=== PATIENT | female | born 1960 | race Caucasian/White ===

== ENCOUNTER 2017-06-29 10:38 | Outpatient (CLI) | payer OTHER ==
--- NOTE | 2017-06-30 15:42 | Mammography Report ---
DIGITAL SCREENING MAMMOGRAM: 06/29/2017 CLINICAL INDICATION: A 56-year-old with history of late childbearing, family history of breast cancer, for screening COMPARISON: 02/2016, 12/2013, 10/2012, 06/2011. TECHNIQUE: Routine CC and MLO projections were obtained of the breasts. Bilateral laterally exaggerated craniocaudal views. FINDINGS: Parenchymal tissue within both breasts is heterogeneously dense, which may lower the sensitivity of mammography; however, there are no dominant masses, suspicious microcalcifications, or secondary signs of malignancy. In comparison to the previous studies, there are no significant changes. ASSESSMENT: NO MAMMOGRAPHIC EVIDENCE OF MALIGNANCY. NO SIGNIFICANT INTERVAL CHANGES. RECOMMENDATION: Screening mammography is recommended annually. BIRADS category 1 - negative. STANDARD QUALIFYING STATEMENTS: 1. This examination was reviewed with the aid of Computed-Aided Detection (CAD). 2. A negative or benign imaging report should not delay biopsy if clinically suspicious findings are present. Consider surgical consultation if warranted. More than 5% of cancers are not identified by imaging. 3. Dense breasts may obscure an underlying neoplasm. TD: 06/30/2017 15:41
== END 2017-06-29 10:39 | disposition home or self-care (01) ==
LOC: DI.S 10:38
PROVIDERS: ATTEND Nurse Practitioner Family
DX: Z12.39 Encounter for other screening for malignant neoplasm of breast (principal); Z80.3 Family history of malignant neoplasm of breast
CPT/HCPCS: 77067

== ENCOUNTER 2017-07-05 13:09 | Outpatient (CLI) | payer OTHER ==
--- NOTE | 2017-07-05 16:33 | XRAY Report ---
TWO VIEW CHEST: 07/05/2017 CLINICAL INDICATION: Upper respiratory infection. COMPARISON: CT 09/22/2011. FINDINGS: Frontal and lateral views of the chest demonstrate a normal cardiac silhouette. Biapical scarring is stable. No focal consolidation, effusion, or pneumothorax is present. IMPRESSION: BIAPICAL SCARRING. NO EVIDENCE OF ACUTE CARDIOPULMONARY DISEASE. TD: 07/05/2017 16:33
== END 2017-07-05 13:10 | disposition home or self-care (01) ==
LOC: DI.S 13:09
PROVIDERS: ATTEND Nurse Practitioner Family
DX: J06.9 Acute upper respiratory infection, unspecified (principal)
CPT/HCPCS: 71046

== ENCOUNTER 2017-11-29 13:04 | Outpatient (CLI) | payer OTHER ==
--- NOTE | 2017-11-29 14:41 | XRAY Report ---
Procedure Date: 11/29/2017 Accession Number: [id number] / [id number] Procedure: XR - Foot 3 View RT CPT Code: FULL RESULT: EXAM: RIGHT FOOT RADIOGRAPHY EXAM DATE: 11/29/2017 01:28 PM. CLINICAL HISTORY: R FOOT PAIN. COMPARISON: None. TECHNIQUE: 3 views. FINDINGS: Bones: no fractures or bone lesions. Joints: no subluxations. Soft Tissues: no soft tissue swelling or radiopaque foreign body. IMPRESSION: Normal right foot radiography. RADIA
== END 2017-11-29 13:05 | disposition home or self-care (01) ==
LOC: DI 13:04
PROVIDERS: ATTEND Physician Assistant
DX: M79.671 Pain in right foot (principal)

== ENCOUNTER 2018-02-13 15:46 | Outpatient (CLI) | payer MEDICAID, OTHER ==
[2018-02-13 17:24] LABS: BILIRUBIN,URINE NEGATIVE (NEGATIVE); GLUCOSE, URINE (UA) NEGATIVE (NEGATIVE); KETONES,URINE (UA) >=80 mg/dL (NEGATIVE); LEUKOCYTE ESTERASE, URINE LARGE (NEGATIVE); NITRITE,URINE POSITIVE (NEGATIVE); OCCULT BLOOD,URINE MODERATE (NEGATIVE); PROTEIN,URINE 100 mg/dL (NEGATIVE); UROBILINOGEN,URINE 0.2 (NORMAL) E.U./dL (NORMAL)
[2018-02-13 17:26] LABS: CLARITY,URINE CLOUDY (CLEAR)
[2018-02-13 17:39] LABS: BACTERIA,URINE Few /HPF (None Seen); RBC,URINE 0-5 /HPF (0-5); SQUAMOUS EPITHELIAL CELL,UR RARE Squamous (<= Few)
== END 2018-02-13 15:47 | disposition home or self-care (01) ==
LOC: LAB.R 15:46
PROVIDERS: ATTEND Nurse Practitioner Family
DX: N39.0 Urinary tract infection, site not specified (principal)
CPT/HCPCS: 81001; 87086; 87181

== ENCOUNTER 2018-10-29 09:35 | Outpatient (CLI) | payer MEDICAID | END 2018-10-29 09:36 | disposition home or self-care (01) | LOC: LAB.S 09:35 | PROVIDERS: ATTEND Registered Nurse | DX: Z00.00 Encounter for general adult medical examination without abnormal findings (principal) | CPT/HCPCS: 36415; 86735; 86762; 86765 ==

== ENCOUNTER 2018-11-06 16:15 | Outpatient (CLI) | payer MEDICAID | END 2018-11-06 16:16 | disposition home or self-care (01) | LOC: LAB 16:15 | PROVIDERS: ATTEND Registered Nurse | DX: Z00.00 Encounter for general adult medical examination without abnormal findings (principal) | CPT/HCPCS: 36415; 81599; 86480 ==

== ENCOUNTER 2020-01-30 08:00 | Outpatient (CLI) | payer MEDICAID, OTHER | END 2020-01-30 23:59 | disposition home or self-care (01) | LOC: LAB.R 08:00 | PROVIDERS: ATTEND Internal Medicine | DX: J02.9 Acute pharyngitis, unspecified (principal) | CPT/HCPCS: 87070 ==

== ENCOUNTER 2022-12-01 13:58 | Outpatient (CLI) | payer BC, MEDICAID ==
--- NOTE | 2022-12-02 12:56 | Mammography Report ---
BILATERAL DIGITAL SCREENING MAMMOGRAM 3D/2D WITH EXAGGERATED CC: 12/01/2022 CLINICAL: Routine screening. Comparison is made to exams dated: 06/29/2017 mammogram, 03/02/2016 mammogram, 12/12/2013 mammogram, an d 11/07/2012 mammogram - [facility]. Both breasts are heterogeneously dense, which may obscure small masses (category c / 51-75% glandular tissue). No significant masses, calcifications, or other findings are seen in either breast. There has been no significant interval change. IMPRESSION: NEGATIVE There is no mammographic evidence of malignancy. A 1 year screening mammogram is recommended. Please also consider supplemental MRI screening. Based on Tyrer-Cuzick model (a risk assessment model), the patient's lifetime risk is 25.8% and her 1 0 year risk is 11.8%. If a patient has an elevated risk, a more comprehensive evaluation should be co nsidered and/or a referral to a genetic counselor. The [place] [employer], [place] [employer], and NCCN Guidelines advise the consideration of Breast MRI as an adjunct to screening mammo graphy in patients whose "Lifetime risk to develop breast cancer" is 20% or higher. This exam was interpreted at Station ID: [id number]. NOTE: For mammograms, a report in lay terms will be sent to the patient. Approximately 15% of breast malignancies will not be visualized mammographically. In the management of a palpable breast mass, a negative mammogram must not discourage biopsy of a clinically suspicious lesion. Electronically Signed By: Segundo Bravo M.D. lc/:12/01/2022 15:57:51 letter sent: No_Letter ACR BI-RADS Category 1: Negative 3341F PARENCHYMAL PATTERN: (D) - The breast(s) demonstrate(s) heterogeneously dense fibroglandular moi ramirez. BI-RADS CATEGORY: (1) - 1 Mammogram [id number] 1 year screening LATERALITY: (B)
== END 2022-12-01 13:59 | disposition home or self-care (01) ==
LOC: DI 13:58
PROVIDERS: ATTEND Naturopath
DX: Z12.31 Encounter for screening mammogram for malignant neoplasm of breast (principal)

== ENCOUNTER 2022-12-01 14:01 | Outpatient (CLI) | payer BC, MEDICAID ==
--- NOTE | 2022-12-01 15:40 | DEXA Report ---
PROCEDURE: Dexa Spine and/or Hip INDICATIONS: SCREENING FOR OSTEOPOROSIS TECHNIQUE: Dual energy x-ray absorptiometry (DXA) was performed on a Scoreoid System. Regions measur ed are the AP Spine, femoral neck, and if needed forearm. COMPARISON: None FINDINGS: Lumbar Spine: Bone Mineral Density 0.789 g/cm/cm,T score -3.3. Left Femoral Neck: Bone Mineral Density 0.815 g/cm/cm, T score -1.6. Left Hip: Bone Mineral Density 0.794 g/cm/cm,T score -1.7. (T score greater or equal to -1.0: NORMAL) (T score from -1.1 to -2.4: OSTEOPENIA) (T score less than or equal to -2.5 to: OSTEOPOROSIS) Impression: By WHO criteria, this patient has osteoporosis. Patients with diagnosis of osteoporosis or osteopenia should have regular bone mineral density assess ment. For those eligible for Medicare, routine testing is allowed once every 2 years. Testing frequ ency can be increased for patients who have rapidly progressing disease or for those who are receivin g medical therapy to restore bone mass. Reviewed by: Tavo Hewitt MD on 12/01/2022 3:39 PM PDT Approved by: Tavo Hewitt MD on 12/01/2022 3:39 PM PDT Station ID: [id number]
== END 2022-12-01 14:02 | disposition home or self-care (01) ==
LOC: DI 14:01
PROVIDERS: ATTEND Naturopath
DX: Z13.820 Encounter for screening for osteoporosis (principal); M81.0 Age-related osteoporosis without current pathological fracture

== ENCOUNTER 2023-03-15 10:12 | Outpatient (CLI) | payer BC ==
[2023-03-17 19:07] LABS: THYROGLOBULIN ANTIBODY 2.1 IU/mL (0.0-0.9)
== END 2023-03-15 10:13 | disposition home or self-care (01) ==
LOC: LAB.S 10:12
PROVIDERS: ATTEND Physician Assistant Medical
DX: E03.9 Hypothyroidism, unspecified (principal)
CPT/HCPCS: 36415; 86376; 86800

== ENCOUNTER 2023-03-20 10:52 | Outpatient (CLI) | payer BC ==
[2023-03-20 15:26] LABS: BASOPHILS # (AUTO) 0.1 10^3/uL (0.0-0.1); BASOPHILS % (AUTO) 1.6 %; EOSINOPHILS # (AUTO) 0.2 10^3/uL (0.0-0.7); HCT - HEMATOCRIT 38.6 % (37.0-47.0); HGB - HEMOGLOBIN 12.2 g/dL (12.0-16.0); LYMPHOCYTES # (AUTO) 2.1 10^3/uL (1.5-3.5); LYMPHOCYTES % (AUTO) 49.3 %; MEAN CORPUSCULAR HEMOGLOBIN 30.6 pg (27.0-31.0); MEAN CORPUSCULAR HGB CONC 31.6 g/dL (32.0-36.0); MEAN CORPUSCULAR VOLUME 96.7 fL (81.0-99.0); MEAN PLATELET VOLUME 11.6 fL (7.9-10.8); MONOCYTES # (AUTO) 0.3 10^3/uL (0.0-1.0); MONOCYTES % (AUTO) 7.9 %; NEUTROPHILS # (AUTO) 1.6 10^3/uL (1.5-6.6); PLT - PLATELET COUNT 241 10^3/uL (130-450); RED BLOOD COUNT 3.99 10^6/uL (4.20-5.40); RED CELL DISTRIBUTION WIDTH 13.2 % (12.0-15.0); WHITE BLOOD COUNT 4.3 x10^3/uL (4.8-10.8)
[2023-03-20 15:51] LABS: ALBUMIN 4.3 g/dL (3.2-5.5); ALBUMIN/GLOBULIN RATIO 1.7 (1.0-2.2); ALKALINE PHOSPHATASE 52 IU/L (42-121); ALT ALANINE AMINOTRANSFERASE 11 IU/L (10-60); AST ASPARTATE AMINOTRANSFERASE 16 IU/L (10-42); BILIRUBIN,TOTAL 0.4 mg/dL (0.2-1.0); BUN - BLOOD UREA NITROGEN 8 mg/dL (6-20); CALCIUM 9.7 mg/dL (8.5-10.3); CARBON DIOXIDE - CO2 28 mmol/L (21-32); CHLORIDE 105 mmol/L (101-111); CHOL/HDL RATIO 3.6 (<4.4); CHOLESTEROL 272 mg/dL; CREATININE 0.8 mg/dL (0.6-1.3); GFR - MDRD 73 (>89); GLUCOSE 98 mg/dL (74-104); HDL CHOLESTEROL 76 mg/dL; LDL CHOLESTEROL,CALCULATED 169 mg/dL; LDL/HDL RATIO 2.2 (<4.4); SODIUM 139 mmol/L (135-145); TOTAL PROTEIN 6.9 g/dL (6.4-8.9); TRIGLYCERIDES 136 mg/dL (48-352); VLDL CHOLESTEROL 27 mg/dL
[2023-03-20 15:59] LABS: THYROID STIMULATING HORMONE 2.99 uIU/mL (0.34-5.60)
[2023-03-20 17:06] LABS: ESTIMATED AVERAGE GLUCOSE 111 mg/dL (70-100); HEMOGLOBIN A1c% 5.5 % (4.27-6.07)
== END 2023-03-20 10:53 | disposition home or self-care (01) ==
LOC: LAB.S 10:52
PROVIDERS: ATTEND Physician Assistant Medical
DX: Z13.9 Encounter for screening, unspecified (principal)
CPT/HCPCS: 36415; 80053; 80061; 83036; 83721; 84443; 85025

== ENCOUNTER 2023-07-13 08:28 | Day surgery (SDC) | payer BC ==
[2023-07-13] MEDS: LACTATED RINGERS 1,000 ML IV ONE (08:45)
[2023-07-13] MEDS ORDERED: PROPOFOL 500 MG/50 ML 500 MG/50 ML VIAL ONE (09:20)
--- NOTE | 2023-07-13 09:28 | HISTORY & PHYSICAL EXAMINATION ---
Chief Complaint - Chief Complaint Chief Complaint: here for colonoscopy History of Present Illness - History Obtained From Records Reviewed: yes History obtained from: pt Exam Limitations: none - History of Present Illness HPI Comment/Other: here for first time colonoscopy. distant stool tests had been done. no gi symptoms or anemia. denies fhx colon ca. states mother had liver cancer. History - Past Medical History Cardiovascular: reports: Hypertension Respiratory: reports: None Endocrine/Autoimmune: reports: HyPOthyroidism, Other GI: reports: None : reports: None HEENT: reports: None Psych: reports: None Musculoskeletal: reports: None Derm: reports: None MRSA Hx?: No - Past Surgical History Ortho: reports: Other /SAMPLE WEAVER: reports: Dilation and currettage Meds/Allgy - Home Medications Home Medications: Ambulatory Orders Medication Instructions Recorded Confirmed Mirtazapine 15 mg PO HS 08/23/12 07/12/23 - Allergies Allergies/Adverse Reactions: Allergies Allergy/AdvReac Type Severity Reaction Status Date / Time niacin Allergy Intermediate Dizziness Verified 08/28/12 10:16 Review of Systems - Other Findings Other Findings: 10 pt ros as above otherwise unremarkable Exam - Vital Signs Vital Signs: Vital Signs x48h Temp Pulse Resp BP Pulse Ox 07/13/23 08:45 36.7 C 69 14 148/77 H 100 - Physical Exam General Appearance: positive: No acute distress, Alert ENT: positive: No signs of dehydration Neck: positive: No JVD, Trachea midline Respiratory: positive: No respiratory distress Cardiovascular: positive: Regular rate & rhythm Abdomen: positive: No distention Neurologic/Psychiatric: positive: Oriented x3 Conclusion/Plan - Problem List (1) Colon cancer screening Conclusion/Plan: plan colonoscopy. parq held and consent obtained
--- NOTE | 2023-07-13 09:39 | ANESTHESIA ---
Pre-Anesthesia VS, & Labs - Diagnosis screening - Procedure colonoscopy Vital Signs: Temp Pulse Resp BP Pulse Ox O2 Flow Rate 36.7 C 69 14 148/77 H 100 07/13/23 08:45 07/13/23 08:45 07/13/23 08:45 07/13/23 08:45 07/13/23 08:45 Height: 5 ft 6 in Weight (kg): 58.9 kg Body Mass Index: 20.9 BMI Classification: Normal - NPO >8 hours - Is Patient ?: No Home Medications and Allergies Mirtazapine 15 mg PO HS 08/23/12 Allergies/Adverse Reactions: Allergies Allergy/AdvReac Type Severity Reaction Status Date / Time niacin Allergy Intermediate Dizziness Verified 08/28/12 10:16 Anes History & Medical History - Anesthetic History Anesthesia Complications: reports: No previous complications Family history of Anesthesia Complications: Denies Family history of Malignant Hyperthermia: Denies - Medical History Cardiovascular: reports: Hypertension Pulmonary: reports: None Gastrointestinal: reports: None Urinary: reports: None Musculoskeletal: reports: None Endocrine/Autoimmune: reports: HyPOthyroidism, Other Skin: reports: None - Surgical History Gynecologic: reports: Dilation and currettage Orthopedic: reports: Other Exam General: Alert, Oriented x3, Cooperative Dental: WNL Mouth Openin Fingerbreadth Neck Mobility: Normal Mallampati classification: II Thyromental Distance: 4-6 cm Respiratory: Lungs clear Plan Anesthesia Type: General, Total IV Consent for Procedure(s) Verified and Reviewed: Yes Code Status: Attempt Resuscitation ASA classification: 2-Mild systemic disease Is this case an emergency?: No
[2023-07-13] MEDS ORDERED: GLYCOPYRROLATE 1 MG/5 ML VIAL ONE (09:42)
[2023-07-13] MEDS ORDERED: ATROPINE ABBOJECT 1 MG/10 ML SYRINGE IVP ONE (09:50)
[2023-07-13] MEDS: LACTATED RINGERS 100 ML IV ONE (10:07)
[2023-07-13 10:14] VITALS: O2SAT 98
[2023-07-13 11:24] VITALS: BP 131/83
--- NOTE | 2023-07-13 12:49 | ANESTHESIA POST OP EVALUATION ---
Anesthesia Post Eval - Post Anesthesia Eval Vitals: Last Vital Signs Temp 36.3 C L 07/13/23 11:00 Pulse 69 07/13/23 11:00 Resp 16 07/13/23 11:00 BP 131/83 H 07/13/23 11:00 Pulse Ox 98 07/13/23 11:00 O2 Flow Rate CV Function Including HR & BP: Stable Pain Control: Satisfactory Nausea & Vomiting: Negative Mental Status: Baseline Respiratory Status: Airway Patent Hydration Status: Satisfactory Anesthesia Complications: None
== END 2023-07-13 08:29 | disposition home or self-care (01) ==
LOC: SDS 08:28
PROVIDERS: ATTEND Surgery
DX: Z12.11 Encounter for screening for malignant neoplasm of colon (principal); K57.30 Diverticulosis of large intestine without perforation or abscess without bleeding; I10 Essential (primary) hypertension
CPT/HCPCS: 45378; J7120

== ENCOUNTER 2023-07-18 16:27 | Outpatient (CLI) | payer BC ==
--- NOTE | 2023-07-18 17:29 | XRAY Report ---
PROCEDURE: Shoulder 2+V RT INDICATIONS: PAIN IN RIGHT SHOULDER TECHNIQUE: 3 views of the shoulder were acquired. COMPARISON: None. FINDINGS: Bones: No fractures or dislocations. No suspicious bony lesions. Visualized ribs appear intact. Soft tissues: No suspicious soft tissue calcifications. The visualized lungs are within normal limi ts. IMPRESSION: No acute bony abnormality. Reviewed by: Jeevan Carver MD on 07/18/2023 5:27 PM PDT Approved by: Jeevan Carver MD on 07/18/2023 5:27 PM PDT Station ID: [id number]
== END 2023-07-18 16:28 | disposition home or self-care (01) ==
LOC: DI.S 16:27
PROVIDERS: ATTEND Physician Assistant Medical
DX: M25.511 Pain in right shoulder (principal)

== ENCOUNTER 2023-11-20 11:01 | Outpatient (CLI) | payer BC ==
--- NOTE | 2023-11-20 18:57 | SLEEP CARE CONSULTATION ---
Information from patient questionnaire entered by Matt Mckoy. I have reviewed and concur with the information entered by Matt Mckoy. This document represents the service I personally performed and the decisions made by me, Lee Lamb MD, [facility]. History of Present Illness Service Date and Time: 11/20/2023 1101 Chief Complaint: reports: Insomnia, Frequent awakenings at night Date of Onset: FOR THE LAST 30YRS Usual bedtime: 2230 Time it takes to fall asleep: 30MINS OR LONGER Snores at night: Yes (DON'T KNOW) Observed to quit breathing while asleep: No Sleeps alone due to snoring: No Number of times waking at night: 10+ Reasons for waking at night: reports: Gasping for air, Bathroom, Other (UNKNOWN, NOISE) Toss, Turn, or Twitch while sleeping: Yes Recalls having dreams: Yes Usually gets out of bed at: [id number] Feels refreshed in the morning: No Morning headache: Yes Sleepy or fatigued during the day: Yes Ever fallen asleep while driving: No Takes day naps: No Prior sleep studies: No Additional HPI information: I have the pleasure of seeing Ms. Ortiz today regarding the possibility of her having obstructive sleep apnea. As you know, she is a 63-year-old lady who complains of frequent awakenings, and insomnia all through her life. The patient tells me that she normally goes to bed around 10:30 pm, and it takes her approximately 30+ minutes to fall asleep. She has been told that she snores lightly at night. She has been observed to stop breathing in her sleep. She presently sleeps alone. She can recall waking up on average 10+ times during the night. Most of the time she wakes up because of having to use the bathroom and noises. She has awakened occasionally because of her own snoring, choking, and having to gasp for air. There is a lot of tossing and turning in her sleep. No somniloquy (sleep talking) or somnambulism (sleep walking). Generally, she can recall having dreams. In the morning she usually gets up out of the bed around 9 - 10 a.m. not feeling refreshed nor rested. She usually does have a morning headache that goes away with coffee. During the day she complains of feeling sleepy and fatigued. Her score on [place] Sleepiness Scale is 1 out of 24. She never has fallen asleep while driving nor has had any accident due to sleepiness. She usually does not take naps during the day. Upon falling asleep during the day she denies having vivid dreams. She has never had sleep paralysis, experienced cataplexy or symptoms of restless leg syndrome. She reports having impaired concentration during the day. - Parasomnia Symptoms Ever been unable to move upon waking from sleep: No Walks in sleep: No Talks in sleep: No Ever felt weak in the knees when startled or emotional: No Bothered by creepy, crawly, restless sensations in legs: No Problems with memory or concentration: Yes Subjective Initial [place] Sleepiness Scale score: 1 (11/20/23) Past Medical History Past Medical History: reports: Hypothyroidism, Anxiety Social History The patient's occupation is a TEACHER. Patient is and lives in [place]. Have you smoked in the past 12 months: No Alcohol use: Yes Alcohol amount and frequency: 1-2 GLASSES DAILY Caffeine use: Yes Caffeine amount and frequency: 1 CUP 1 TIME A DAY MORNING Family History Family history of sleep disordered breathing: No (UNKNOWN) Allergies and Home Medications Known drug allergies: Yes Drug allergies reviewed: Yes Home medication list reviewed: Yes Allergy and home medication list: Allergies niacin Allergy (Intermediate, Verified 11/20/23 11:11) Dizziness Pt took oral niacin at home, turned bright red and almost at home. Called md, went to ER and they told her it was ok. Not treated with any medications Review of Systems Cardiovascular: reports: high blood pressure, leg or foot swelling Respiratory: denies: shortness of breath, wheeze, sputum production, chronic cough, other Gastrointestinal: reports: nausea Urinary: denies: incontinence, frequency, urgency, impotence, other Neurological: denies: headaches, seizure, head trauma, disorientation, speech dysfunction, gait or balance problems, fainting or unconsciousness, other Psychiatric: reports: anxiety Ear/Nose/Throat: reports: nasal congestion, sinus problems, wisdom teeth removed Endocrine: reports: thyroid disease, too hot or cold Musculoskeletal: denies: joint pain, neck pain, back pain, joint swelling, muscle pain or cramping, mobility problems, other Immunologic: denies: sneezing, rash, itching, allergies to food or environment, other Physical Exam Vital signs obtained and entered by: MATT Willett MA Blood Pressure: 132/62 (LEFT ARM) Cuff size: regular Heart Rate: 65 O2 Saturation: 100 Height: 5 ft 5.5 in Weight: 129 lb 3.2 oz Body Mass Index: 21.2 BMI Classification: Normal Neck circumference: 13 Mood/affect: normal HEENT: No craniofacial malformation Nostrils: patent to airflow Turbinates: normal Septum: deviated right Mouth and throat: narrow oropharynx Soft palate: long Hard palate: normal Uvula: normal Uvula visualization: 50% Mallampati Class II Tongue: normal in size Tonsils: small Chin and jaw: Retrognathia Heart: regular rate and rhythm Lungs: clear bilaterally Extremities: no edema or clubbing Neurologic: intact Impression and Plan IMPRESSION: 1. Obstructive Sleep Apnea-Hypopnea Syndrome, as evident by history of snoring, observed cessation of breath while asleep, nocturnal choking, frequent awakenings, unrefreshed sleep, cognitive impairment, and fatigue. Narrow oropharynx and retrognathia are common predisposing factors for obstructive sleep apnea-hypopnea syndrome. I recommend proceeding to polysomnography to confirm the diagnosis and to assess severity. I informed the patient of what the sleep studies involve and after some discussion, she agreed to proceed. 2. Insomnia, due to excessive time spent in bed of about 11 hours a night. The patient says that because she wakes up during the night, she has to spend that many hours in bed. I explained to her that it is the other way around. Plan: 1. Schedule polysomnography and return in 1 to 2 weeks after the study to discuss result and initiate therapy. 2. Maintain a regular wake up time and spend no more than 8 hours in bed at night. Avoid naps. Follow up with Sleep Care in: 1-2 months Visit Type: In Office Time Spent with Patient (minutes): 15 Provider Statement: I spent 100% of the Face to Face Visit with the patient with greater than 50% spent counseling the patient and coordination of care.
[2023-11-20 19:02] VITALS: BP 132/62; O2SAT 100
== END 2023-11-20 11:02 | disposition home or self-care (01) ==
LOC: SC 11:01
PROVIDERS: ATTEND Internal Medicine Pulmonary Disease
DX: R06.81 Apnea, not elsewhere classified (principal); G47.8 Other sleep disorders; R53.83 Other fatigue; R06.83 Snoring; R41.89 Other symptoms and signs involving cognitive functions and awareness; G47.00 Insomnia, unspecified
CPT/HCPCS: 99202; 99212